=== PATIENT | female | born 1955 | race Caucasian/White ===

== ENCOUNTER 2019-06-01 20:50 | Emergency (ER) | payer MEDICARE, MEDICAID ==
[~2019-06-01] VITALS: Ht 162.6 cm; Wt 68.0 kg
[2019-06-01] MEDS ORDERED: SYNTHROID125 MC1 PO (21:01)
[2019-06-01] MEDS ORDERED: NORVASC 2.5 MG2.5 M1 PO (21:02)
[2019-06-01] MEDS ORDERED: TOPAMAX100 MG PO (21:02)
[2019-06-01] MEDS ORDERED: PRAVACHOL40 MG PO (21:02)
[2019-06-01] MEDS ORDERED: GLIPIZIDE 10 MG10 MG PO (21:03)
[2019-06-01] MEDS ORDERED: ROBAXIN 750 MG750 MG PO (21:03)
[2019-06-01] MEDS ORDERED: COZAAR 25 MG TA25 M2 PO (21:04)
[2019-06-01 21:16] LABS: URINE BILIRUBIN NEGATIVE (Negative); URINE BLOOD NEGATIVE (Negative); URINE CLARITY CLEAR; URINE COLOR YELLOW; URINE GLUCOSE-RANDOM NEGATIVE (Negative); URINE KETONES NEGATIVE (Negative); URINE LEUKOCYTES-REFLEX 1+ (Negative); URINE NITRITE-REFLEX NEGATIVE (Negative); URINE PROTEIN NEGATIVE (Negative); URINE SPECIFIC GRAVITY 1.025 (1.005-1.030); URINE UROBILINOGEN 0.2 E.U./dl (0.2-1.0)
[2019-06-01 21:27] LABS: BACTERIA-REFLEX >30 Many /HPF (None Seen); CASTS None Seen /LPF (None Seen); CRYSTALS None Seen /LPF (None Seen); MUCUS 4-6 Moderate strn/LPF (None Seen); SQUAMOUS 4-10 Moderate /LPF (0-3); URINE RBC 3-10 Few /HPF (0-2); WBC CLUMPS Few (None Seen)
[2019-06-01 22:14] LABS: ABSOLUTE BASOPHILS 0.2 thou/uL (0.0-0.2); ABSOLUTE EOSINOPHILS 0.3 thou/uL (0.0-0.7); ABSOLUTE LYMPHOCYTES 2.6 thou/uL (0.8-5.3); ABSOLUTE MONOCYTES 0.8 thou/uL (0.0-1.2); ABSOLUTE NEUTROPHILS 4.8 thou/uL (1.6-8.1); BASOPHILS 1.9 %; HEMATOCRIT 37.5 % (37.0-47.0); HEMOGLOBIN 13.1 gm/dL (12.0-15.0); LYMPHOCYTES 29.7 %; MCH 33.6 pg (26.0-34.0); MCHC 35.1 g/dL (28.0-37.0); MCV 95.8 fL (80.0-100.0); MONOCYTES 9.2 %; MPV 8.1 fl. (7.2-11.1); NUCLEATED RBCS 0 /100WBC; PLATELET COUNT* 274 thou/uL (150-400); POLYS 56.2 %; RBC 3.92 mil/uL (4.20-5.00); RDW-CV 13.6 % (10.5-14.5); WBC 8.6 thou/uL (4.0-11.0)
[2019-06-01 23:05] LABS: CALCIUM 8.3 mg/dL (8.5-10.1); CREATININE 1.1 mg/dL (0.6-1.3); POTASSIUM 3.8 mmol/L (3.5-5.1)
[2019-06-01 23:17] LABS: ALBUMIN 3.5 g/dL (3.4-5.0); TOTAL BILIRUBIN 0.3 mg/dL (<0.1-1.0); TOTAL PROTEIN 6.8 g/dL (6.4-8.2)
[2019-06-01] MEDS ORDERED: BACTRIM DS TAB1 EACH PO (23:26)
[2019-06-01 23:44] VITALS: BP 143/76
--- NOTE | 2019-06-02 15:26 | EKG ---
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1955 Requested By: Sherice Bates Order Number: [id number] MD: David Wong Measurements Intervals [place] Rate: 70 P: 18 HI: 181 QRS: -33 QRSD: 104 T: 46 QT: 394 QTc: 426 Interpretive Statements Sinus rhythm Abnormal R-wave progression, late transition LVH with secondary repolarization abnormality Baseline wander in lead(s) V6 Compared to ECG 09/20/2008 20:03:54 Left ventricular hypertrophy now present Early repolarization now present Electronically Signed On 06-02-2019 15:25:58 EXCEL SPECIALIST by David Wong [email or web address] <ELECTRONICALLY SIGNED> By: David Wong MD, [facility] 06/02/19 1525 11 11 David Wong MD, [facility] /EPI
== END 2019-06-01 23:45 | disposition home or self-care (01) ==
LOC: M.ERS 20:50
PROVIDERS: Emergency Medicine
DX: N39.0 Urinary tract infection, site not specified (principal); I10 Essential (primary) hypertension; J45.909 Unspecified asthma, uncomplicated; E11.9 Type 2 diabetes mellitus without complications; E78.5 Hyperlipidemia, unspecified

== ENCOUNTER 2019-09-01 14:42 | Emergency (ER) | payer MEDICARE, MEDICAID ==
[~2019-09-01] VITALS: Ht 162.6 cm; Wt 81.7 kg
[~2019-09-01 14:42] MED LIST: BACTRIM DS TAB1 EACH PO; COZAAR 25 MG TA25 M2 PO; GLIPIZIDE 10 MG10 MG PO; NORVASC 2.5 MG2.5 M1 PO; PRAVACHOL40 MG PO; ROBAXIN 750 MG750 MG PO; SYNTHROID125 MC1 PO; TOPAMAX100 MG PO
[2019-09-01] MEDS ORDERED: METFORMIN HCL500 M3 PO (15:07)
[2019-09-01] MEDS ORDERED: LOVASTATIN 20 M20 MG PO (15:09)
[2019-09-01 15:20] LABS: ABSOLUTE BASOPHILS 0.1 thou/uL (0.0-0.2); ABSOLUTE EOSINOPHILS 0.6 thou/uL (0.0-0.7); ABSOLUTE LYMPHOCYTES 2.8 thou/uL (0.8-5.3); ABSOLUTE MONOCYTES 0.7 thou/uL (0.0-1.2); ABSOLUTE NEUTROPHILS 5.1 thou/uL (1.6-8.1); BASOPHILS 1.5 %; EOSINOPHILS 6.4 %; HEMATOCRIT 40.7 % (37.0-47.0); HEMOGLOBIN 14.2 gm/dL (12.0-15.0); LYMPHOCYTES 30.3 %; MCH 33.3 pg (26.0-34.0); MCHC 34.8 g/dL (28.0-37.0); MCV 95.8 fL (80.0-100.0); MONOCYTES 7.3 %; NUCLEATED RBCS 0 /100WBC; PLATELET COUNT* 285 thou/uL (150-400); POLYS 54.5 %; RBC 4.25 mil/uL (4.20-5.00); RDW-CV 13.6 % (10.5-14.5); WBC 9.4 thou/uL (4.0-11.0)
[2019-09-01 15:26] LABS: CALCIUM 8.6 mg/dL (8.5-10.1); CREATININE 1.1 mg/dL (0.6-1.3); POTASSIUM 3.8 mmol/L (3.5-5.1)
[2019-09-01 15:31] LABS: ALBUMIN 3.7 g/dL (3.4-5.0); TOTAL BILIRUBIN 0.4 mg/dL (<0.1-1.0); TOTAL PROTEIN 7.5 g/dL (6.4-8.2)
[2019-09-01 15:45] LABS: URINE BILIRUBIN NEGATIVE (Negative); URINE BLOOD TRACE (Negative); URINE CLARITY CLEAR; URINE COLOR YELLOW; URINE GLUCOSE-RANDOM NEGATIVE (Negative); URINE KETONES NEGATIVE (Negative); URINE LEUKOCYTES-REFLEX 1+ (Negative); URINE NITRITE-REFLEX POSITIVE (Negative); URINE PROTEIN NEGATIVE (Negative); URINE UROBILINOGEN 0.2 E.U./dl (0.2-1.0)
[2019-09-01 15:53] LABS: BACTERIA-REFLEX >30 Many /HPF (None Seen); SQUAMOUS >10 Many /LPF (0-3)
[2019-09-01 15:54] LABS: CASTS None Seen /LPF (None Seen); CRYSTALS None Seen /LPF (None Seen); MUCUS None Seen strn/LPF (None Seen); URINE RBC 0-2 Rare /HPF (0-2); URINE WBC-REFLEX 6-15 Few /HPF (0-5); WBC CLUMPS Few (None Seen)
[2019-09-01] MEDS ORDERED: KEFLEX500 M1 PO (17:55)
[2019-09-01 18:23] VITALS: BP 145/75
--- NOTE | 2019-09-02 16:22 | EKG ---
[place] [address] ELECTROCARDIOGRAM REPORT Name: SIVA PEACOCKVICTORINO White Room: [facility]#: [id number] Admission: 09/01/19 Attend Phys: Discharge: 09/01/19 Date of : 51 Date of Service: 09/01/19 1526 Report #: [id number] THIS REPORT FOR: //name// [facility] ED Test Date: 2019-09-01 Test Time: 15:26:26 Pat Name: MARCELLA PEACOCK Department: Room: Gender: Master [place]: [place] : 1955 Requested By: Du Lozano Order Number: [id number] MD: Arden House Measurements Intervals [place] Rate: 70 P: 17 [place]: 181 QRS: -45 QRSD: 111 T: 63 QT: 407 QTc: 440 Interpretive Statements Sinus rhythm Left anterior fascicular block Abnormal R-wave progression, late transition Left ventricular hypertrophy Baseline wander in lead(s) II,aVR,aVF,V2 Compared to ECG 06/01/2019 21:12:57 Left anterior fascicular block now present ST (T wave) deviation now present Early repolarization no longer present Electronically Signed On 09-02-2019 16:20:10 CDT by Arden House [email or web address] <ELECTRONICALLY SIGNED> By: Arden House MD, [facility] 09/02/19 1620 1526 1526 Arden House MD, [facility] /EPI
--- NOTE | 2019-09-02 16:23 | EKG ---
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1955 Requested By: Du Lozano Order Number: [id number] MD: Arden House Measurements Intervals [place] Rate: 69 P: 32 [place]: 186 QRS: -47 QRSD: 107 T: 65 QT: 405 QTc: 434 Interpretive Statements Sinus rhythm Left anterior fascicular block Abnormal R-wave progression, late transition Left ventricular hypertrophy Compared to ECG 06/01/2019 21:12:57 Left anterior fascicular block persists Early repolarization no longer present Electronically Signed On 09-02-2019 16:21:20 CDT by Arden House [email or web address] <ELECTRONICALLY SIGNED> By: Arden House MD, FAC 09/02/19 1621 1735 1735 Arden House MD, FAC /EPI
== END 2019-09-01 18:24 | disposition home or self-care (01) ==
LOC: M.ERS 14:42
PROVIDERS: Physician Assistant
DX: N39.0 Urinary tract infection, site not specified (principal); I10 Essential (primary) hypertension; E11.9 Type 2 diabetes mellitus without complications; E03.9 Hypothyroidism, unspecified; J45.909 Unspecified asthma, uncomplicated

== ENCOUNTER 2019-09-11 13:20 | Inpatient (IN) | payer MEDICARE, MEDICAID ==
[~2019-09-11] VITALS: Ht 162.6 cm; Wt 85.8 kg
[~2019-09-11 13:20] MED LIST changes: +KEFLEX500 M1 PO; +LOVASTATIN 20 M20 MG PO; +METFORMIN HCL500 M3 PO
[2019-09-11 13:40] VITALS: BP 140/61
[2019-09-11 14:34] LABS: URINE BILIRUBIN NEGATIVE (Negative); URINE BLOOD NEGATIVE (Negative); URINE CLARITY CLEAR; URINE COLOR YELLOW; URINE GLUCOSE-RANDOM NEGATIVE (Negative); URINE KETONES NEGATIVE (Negative); URINE LEUKOCYTES-REFLEX NEGATIVE (Negative); URINE NITRITE-REFLEX NEGATIVE (Negative); URINE PROTEIN NEGATIVE (Negative)
[2019-09-11 14:43] LABS: AMP/METHAMP Negative (Negative); BARBITURATES Negative (Negative); BENZODIAZEPINES Negative (Negative); COCAINE Negative (Negative); METHADONE Negative (Negative); OPIATES Negative (Negative); PCP Negative (Negative); THC Negative (Negative)
--- NOTE | 2019-09-11 15:00 | EKG ---
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1955 Requested By: Terri Fox Order Number: [id number] MD: Dvaid Wong Measurements Intervals [place] Rate: 100 P: 70 [place]: 178 QRS: -15 QRSD: 146 T: 116 QT: 364 QTc: 470 Interpretive Statements Sinus tachycardia Left bundle branch block Compared to ECG 09/01/2019 17:35:39 Left bundle-branch block now present Sinus rhythm no longer present Electronically Signed On 09-11-2019 14:58:30 CDT by David Wong [email or web address] <ELECTRONICALLY SIGNED> By: David Wong MD, [facility] 09/11/19 1458 1409 1409 David Wong MD, [facility] /EPI
[2019-09-11 15:10] LABS: HEMATOCRIT 36.4 % (37.0-47.0); HEMOGLOBIN 12.9 gm/dL (12.0-15.0); MCH 33.4 pg (26.0-34.0); MCHC 35.4 g/dL (28.0-37.0); MCV 94.3 fL (80.0-100.0); MPV 8.1 fl. (7.2-11.1); NUCLEATED RBCS 0 /100WBC; PLATELET COUNT* 167 thou/uL (150-400); RBC 3.86 mil/uL (4.20-5.00); RDW-CV 13.1 % (10.5-14.5); WBC 3.6 thou/uL (4.0-11.0)
[2019-09-11 15:22] LABS: CALCIUM 8.4 mg/dL (8.5-10.1); POTASSIUM 3.6 mmol/L (3.5-5.1)
[2019-09-11 15:28] LABS: APTT 26.4 Seconds (25.0-31.3); PROTIME 10.4 Seconds (9.20-11.50)
[2019-09-11 15:35] LABS: ALBUMIN 3.5 g/dL (3.4-5.0); TOTAL PROTEIN 7.3 g/dL (6.4-8.2)
[2019-09-11 15:40] LABS: ABSOLUTE EOSINOPHILS 0.3 thou/uL (0.0-0.7); ABSOLUTE LYMPHOCYTES 0.8 thou/uL (0.8-5.3); ABSOLUTE MONOCYTES 0.4 thou/uL (0.0-1.2); ABSOLUTE NEUTROPHILS 2.2 thou/uL (1.6-8.1)
[2019-09-11 15:41] LABS: PLATELET ESTIMATE ADEQUATE
[2019-09-11] MEDS ORDERED: GLUCOPHAGE1000 MG PO (17:26)
[2019-09-11] MEDS ORDERED: COZAAR100 MG PO (17:27)
[2019-09-11] MEDS ORDERED: GLIPIZIDE ER5 MG PO (17:27)
[2019-09-11] MEDS ORDERED: TROKENDI XR50 MG PO (17:28)
[2019-09-11] MEDS ORDERED: LEVOXYL125 MCG PO (17:28)
[2019-09-11] MEDS ORDERED: METHOCARBAMOL750 MG PO (17:29)
[2019-09-11] MEDS ORDERED: NORVASC5 MG PO (17:30)
[2019-09-11] MEDS ORDERED: PRAVACHOL40 MG PO (17:30)
[2019-09-11] MEDS ORDERED: ALTOPREV40 M1 PO (17:31)
[2019-09-11] MEDS ORDERED: VENTOLIN HFA 1818 GM INH (17:31)
[2019-09-11 19:24] VITALS: BP 125/64
[2019-09-12 05:13] VITALS: BP 139/56
[2019-09-12 08:00] VITALS: BP 122/74
[2019-09-12 12:00] VITALS: BP 138/63
--- NOTE | 2019-09-12 17:35 | 2DMMODE ---
[place] [address] 2 D/M-MODE ECHOCARDIOGRAM Name: MARCELLA PEACOCK Cindy Room: [address] IN .R.#: [id number] Admission: 09/11/19 Attend Phys: Dmitry Almendarez Discharge: Date of : 51 Date of Service: 09/12/19 1733 Report #: [id number] THIS REPORT FOR: cc: Judith Ayoub,Judith Capone,David Arguello MD [facility] ~ APPROVED REPORT Study performed: 09/12/2019 15:45:49 EXAM: Comprehensive 2D, Doppler, and color-flow Echocardiogram Patient Location: In-Patient BSA: 1.92 HR: 62 bpm BP: 138/63 mmHg Other Information Study Quality: Fair Indications Abnormal ECG 2D Dimensions IVSd: 17.18 (7-11mm) LVOT Diam: 20.97 (18-24mm) LVDd: 41.10 mm PWd: 10.59 (7-11mm) Ascending Ao: 31.81 (22-36mm) LVDs: 33.32 (25-40mm) Aortic Root: 30.21 mm Volumes Left Atrial Volume (Systole) LA ESV Index: 13.20 mL/m2 Aortic Valve AoV Peak Dean.: 1.15 m/s AO Peak Gr.: 5.32 mmHg LVOT Max P.60 mmHg AO Mean Gr.: 3.24 mmHg LVOT Mean P.31 mmHg LVOT Max V: 0.81 m/s AO V2 VTI: 26.35 cm LVOT Mean V: 0.53 m/s FERMÍN (VTI): 2.13 cm2 LVOT V1 VTI: 16.24 cm Mitral Valve E/A Ratio: 0.87 [place] [address] 2 D/M-MODE ECHOCARDIOGRAM Name: MARCELLA PEACOCK Room: [address]#: [id number] Admission: 09/11/19 Attend Phys: Dmitry Almendarez Discharge: Date of : 51 Date of Service: 09/12/19 1733 Report #: [id number] MV Decel. Time: 169.90 ms MV E Max Dean.: 0.66 m/s MV PHT: 49.27 ms MVA (PHT): 4.47 cm2 TDI E/Lateral E': 16.50 E/Medial E': 13.20 Medial E' Dean.: 0.05 m/s Lateral E' Dean.: 0.04 m/s Pulmonary Valve PV Peak Dean.: 1.05 m/s PV Peak Gr.: 4.38 mmHg Tricuspid Valve RAP Estimate: 5.00 mmHg TR Peak Gr.: 22.03 mmHg RVSP: 27.03 mmHg PA Pressure: 27.03 mmHg Left Ventricle The left ventricle is normal size. There is normal LV segmental wall motion. There is normal left ventricular wall thickness. Left ventricular systolic function is normal. The left ventricular ejection fraction is within the normal range. LVEF is 50-55%. Grade I - abnormal relaxation pattern. Right Ventricle The right ventricle is normal size. The right ventricular systolic function is normal. Atria The left atrium size is normal. Interatrial septum not well visualized. The right atrium size is normal. Aortic Valve The aortic valve is normal in structure. No aortic regurgitation is present. There is no aortic valvular stenosis. Mitral Valve The mitral valve is normal in structure. There is trace mitral valve regurgitation noted. No evidence of mitral valve stenosis. Tricuspid Valve The tricuspid valve is normal in structure. Trace tricuspid regurgitation. [place] [address] 2 D/M-MODE ECHOCARDIOGRAM Name: MARCELLA PEACOCK Room: [address]#: [id number] Admission: 09/11/19 Attend Phys: Dmitry Almendarez Discharge: Date of : 51 Date of Service: 09/12/19 1733 Report #: [id number] Pulmonic valve is not well visualized. There is no pulmonic valvular regurgitation. Great Vessels Aortic root is borderline dilated. IVC is not visualized. Pericardium There is no pericardial effusion. <Conclusion> Left ventricular systolic function is normal. The left ventricular ejection fraction is within the normal range. <ELECTRONICALLY SIGNED> By: David Wong MD, [facility] 09/12/19 1733 1733 1733 David Wong MD, FAC /INF
[2019-09-12 20:00] VITALS: BP 133/71
[2019-09-13 00:04] VITALS: BP 137/71
[2019-09-13 04:38] VITALS: BP 146/81
[2019-09-13 08:00] VITALS: BP 138/78
[2019-09-13 12:00] VITALS: BP 163/81
[2019-09-13 16:11] VITALS: BP 165/74
[2019-09-13 20:00] VITALS: BP 150/89
[2019-09-14 00:50] VITALS: BP 149/74
[2019-09-14 03:50] VITALS: BP 129/53
[2019-09-14 04:37] LABS: HEMATOCRIT 34.2 % (37.0-47.0); HEMOGLOBIN 12.1 gm/dL (12.0-15.0); MCH 33.2 pg (26.0-34.0); MCHC 35.3 g/dL (28.0-37.0); MCV 94.1 fL (80.0-100.0); MPV 7.8 fl. (7.2-11.1); RBC 3.64 mil/uL (4.20-5.00); WBC 7.8 thou/uL (4.0-11.0)
[2019-09-14 04:45] LABS: CALCIUM 8.5 mg/dL (8.5-10.1); CREATININE 0.9 mg/dL (0.6-1.3); MAGNESIUM 1.6 mg/dL (1.8-2.4)
[2019-09-14 08:00] VITALS: BP 168/72
[2019-09-14] MEDS ORDERED: AZITHROMYCIN 2250 MG PO (08:41)
[2019-09-14] MEDS ORDERED: PREDNISONE 20 M20 MG PO (08:41)
[2019-09-14] MEDS ORDERED: CEFDINIR300 MG PO (08:41)
[2019-09-14 12:19] VITALS: BP 168/72
--- NOTE | 2019-09-15 12:50 | CON ---
[address] [address] CONSULTATION Name: MADONNAMARCELLA Cindy Room: [address] [place] .Deborah.#: [id number] Admission: 09/11/19 Attend Phys: Italo Nettles Discharge: 09/14/19 Date of : 51 Report #: [id number] THIS REPORT FOR: //name// cc: Octavio Ayoub Christine L. DO THIS REPORT FOR: //name// CC: OCTAVIO Gallegos DATE OF SERVICE: 09/12/2019 CARDIOLOGY CONSULTATION HISTORY OF PRESENT ILLNESS: The patient is a 64-year-old white female who I was asked to see in the hospital today after she was noted to have an abnormal ECG. The patient denies previous history of heart disease. She is not very active at this time. She does have a long history of diabetes, hypertension and asthma. She has never been admitted here to [place] in the past. She has no previous cardiac evaluation. She was doing well until yesterday when she felt fever and chills. She apparently vomited twice. She felt somewhat confused. The brought her to the Emergency Room and she was admitted yesterday for further evaluation and treatment. She denies any exertional dyspnea, shortness of breath, edema, palpitations or syncope. She denies any cough, diarrhea, dysuria. PAST MEDICAL HISTORY: She has had previous cholecystectomy at [facility]. She has a history of asthma, hypertension and diabetes. MEDICATIONS: On admission included metformin, losartan, glipizide, Synthroid, pravastatin, amlodipine. She has an albuterol inhaler. ALLERGIES: She has no known drug allergies. FAMILY HISTORY: She is not sure of any heart disease. SOCIAL HISTORY: She is . She and her live in [place]. She is not working at this time. She used to smoke a pack of cigarettes a day, quit several years ago. No alcohol abuse. REVIEW OF SYSTEMS: She has had no history of stroke. She does have asthma. No history of liver disease, kidney disease, cancer, psychiatric illness, chronic skin condition. PHYSICAL EXAMINATION: [place] [address] CONSULTATION Name: MARCELLA PEACOCK Room: [address]#: [id number] Admission: 09/11/19 Attend Phys: Italo Nettles Discharge: 09/14/19 Date of : 51 Report #: [id number] GENERAL: Revealed a middle-aged female, appeared in no distress. VITAL SIGNS: She had a blood pressure of 120/60, pulse is 70. She had a temperature on admission yesterday was 100.5 Fahrenheit. HEENT: She was anicteric. Conjunctivae were pink. Mucous membranes moist. NECK: Veins nondistended. No carotid bruits. Neck was supple. CHEST: Revealed coarse breath sounds bilaterally. CARDIOVASCULAR: Regular rate and rhythm. ABDOMEN: Soft. EXTREMITIES: Had no edema. Dorsalis pedis pulse 2+ right, cannot be palpated on left. SKIN: Cool and dry. NEUROLOGIC: Nonfocal. Her ECG on admission showed a sinus rhythm with a left bundle branch block. Her workup included previous ECG in May this year that showed left ventricular hypertrophy. Her x-rays included a portable chest x-ray on admission yesterday that showed some scarring and atelectasis, no infiltrate. CT scan of the abdomen and pelvis since she had an episode of vomiting showed no acute abnormality, diverticulosis. She had a CT scan of the chest using a PE protocol that showed no pulmonary embolus, small nodules. She had a CT scan of the head without contrast that showed chronic changes, no acute abnormality. LABORATORY WORK: Sodium 140, creatinine 1.0. Liver function studies were normal. Troponin 0.06. BNP 393. White blood cell count 3.6, hematocrit 36.4. IMPRESSION AND RECOMMENDATIONS: 1. New left bundle branch block, asymptomatic. Recommend no further cardiac evaluation at this time. 2. Fever and chills. No obvious infection. 3. Diabetes. 4. Hypertension. The patient is on an ARB and calcium clau. 5. Hyperlipidemia. The patient is on a statin drug. 6. Chronic obstructive pulmonary disease. 7. Previous tobacco abuse. The patient has not smoked for years. <ELECTRONICALLY SIGNED> By: David Wong MD, [facility] 09/15/19 1250 1526 1546Daviitalo Wong MD, FAC /nt
== END 2019-09-14 12:45 | disposition home or self-care (01) | DRG 871 ==
LOC: M.ERS 13:20 → M.TBA-ER 17:09 → M.ORTHSURG 17:09 → M.2W 17:09 → M.ORTHSURG 19:20 → M.2W 09-12 11:43
PROVIDERS: Internal Medicine; Nurse Practitioner Family; ADMIT Internal Medicine; ATTEND Internal Medicine
DX: A41.89 Other specified sepsis (principal); J12.9 Viral pneumonia, unspecified; J96.91 Respiratory failure, unspecified with hypoxia; J44.0 Chronic obstructive pulmonary disease with (acute) lower respiratory infection; J44.1 Chronic obstructive pulmonary disease with (acute) exacerbation; E11.9 Type 2 diabetes mellitus without complications; J20.8 Acute bronchitis due to other specified organisms; E78.5 Hyperlipidemia, unspecified; I44.7 Left bundle-branch block, unspecified; I10 Essential (primary) hypertension; Z20.828 Contact with and (suspected) exposure to other viral communicable diseases; E03.9 Hypothyroidism, unspecified; Z79.899 Other long term (current) drug therapy; Z79.84 Long term (current) use of oral hypoglycemic drugs; Z79.51 Long term (current) use of inhaled steroids; Z90.49 Acquired absence of other specified parts of digestive tract; Z87.891 Personal history of nicotine dependence